=== PATIENT | male | born 1985 | race Hispanic/Latino ===

== ENCOUNTER 2017-11-12 23:44 | Emergency (ER) | payer OTHER ==
[2017-11-13] MEDS ORDERED: SODIUM CHLORIDE 0.9% 1000ML 1,000 ML IV ONE ×2 (00:15→01:04)
[2017-11-13 00:20] LABS: BASOPHILS % (AUTO) 0.7 % (0.0-5.0); EOSINOPHILS % (AUTO) 2.5 % (0.0-8.0); HEMATOCRIT 48.8 % (42-54); LYMPHOCYTES % (AUTO) 34.3 % (21.0-51.0); MEAN CORPUSCULAR HEMOGLOBIN 29.6 pg (27.0-33.0); MEAN CORPUSCULAR HGB CONC 34.7 g/dL (32.0-36.0); MEAN CORPUSCULAR VOLUME 85.1 fL (79-99); MONOCYTES % (AUTO) 7.2 % (3.0-13.0); NEUTROPHILS % (AUTO) 55.3 % (40.0-77.0); PLATELET COUNT (AUTO) 204 K/uL (130-400); RED BLOOD CELL COUNT(AUTO) 5.74 MIL/uL (4.50-6.20); RED CELL DISTRIBUTION WIDTH 12.4 % (11.0-15.5); WHITE BLOOD COUNT (AUTO) 8.2 K/uL (4.8-10.8)
[2017-11-13 00:30] LABS: APPEARANCE,URINE Clear (CLEAR); BILIRUBIN,URINE Negative (NEGATIVE); COLOR,URINE Yellow (YELLOW); GLUCOSE, URINE (UA) >=1000 mg/dL (NEGATIVE); KETONES,URINE Trace mg/dL (NEGATIVE); LEUKOCYTE ESTERASE ,URINE Negative (NEGATIVE); NITRATE,URINE Negative (NEGATIVE); OCCULT BLOOD,URINE Negative (NEGATIVE); PROTEIN,URINE Negative (NEGATIVE)
[2017-11-13 00:32] LABS: ALBUMIN 3.9 g/dL (3.5-5.0); BILIRUBIN,TOTAL 1.3 mg/dL (0.2-1.0); CREATININE 0.9 mg/dL (0.5-1.5); POTASSIUM 4.2 mmol/L (3.5-5.1); TOTAL PROTEIN, SERUM 7.4 g/dL (6.0-8.3)
[2017-11-13 00:38] LABS: AMPHET/METH SCREEN,URINE NEGATIVE (NEGATIVE); BARBITURATE SCREEN, URINE NEGATIVE (NEGATIVE); BENZODIAZEPINES SCREEN,URINE NEGATIVE (NEGATIVE); CANNABINOID SCREEN,URINE NEGATIVE (NEGATIVE); COCAINE SCREEN,URINE NEGATIVE (NEGATIVE); OPIATE SCREEN,URINE NEGATIVE (NEGATIVE); PHENCYCLIDINE SCREEN,URINE NEGATIVE (NEGATIVE)
[2017-11-13 00:39] LABS: BACTERIA,URINE None Seen /HPF (None Seen); RBC,URINE None Seen /HPF (0-1); SQUAMOUS EPITHELIAL CELL,UR Moderate /HPF (0-2); WBC,URINE None Seen /HPF (0-1)
[2017-11-13] MEDS ORDERED: INSULIN HUMULIN R 100 UNIT/ML 3ML ONE ×2 (01:02→01:58)
== END 2017-11-13 04:32 | disposition home or self-care (01) ==
LOC: EDH 23:44
DX: E11.65 Type 2 diabetes mellitus with hyperglycemia (principal); Z79.899 Other long term (current) drug therapy; Z87.891 Personal history of nicotine dependence
CPT/HCPCS: 36415; 80053; 80305; 81001; 82948 ×3; 85025; 96361; 96374; 96376; 99284; J1815 ×2; J7030 ×2

== ENCOUNTER 2018-04-18 01:51 | Emergency (ER) | payer OTHER ==
[2018-04-18] MEDS ORDERED: CLINDAMYCIN 600 MG/D5% WATER 50 ML IV ONE (03:35)
[2018-04-18] MEDS ORDERED: LIDOCAINE HCL 1% 20 ML VIAL ONE (03:35)
[2018-04-18] MEDS ORDERED: KETOROLAC TROMETHAMINE 30MG/ML ONE (03:35)
[2018-04-18 04:03] LABS: BASOPHILS % (AUTO) 0.5 % (0.0-5.0); EOSINOPHILS % (AUTO) 2.4 % (0.0-8.0); LYMPHOCYTES % (AUTO) 27.1 % (21.0-51.0); MEAN CORPUSCULAR HEMOGLOBIN 28.5 pg (27.0-33.0); MEAN CORPUSCULAR HGB CONC 33.7 g/dL (32.0-36.0); MEAN CORPUSCULAR VOLUME 84.5 fL (79-99); MONOCYTES % (AUTO) 8.8 % (3.0-13.0); NEUTROPHILS % (AUTO) 61.2 % (40.0-77.0); NUCLEATED RED BLOOD CELLS 0.1 % (0.0-0.19); PLATELET COUNT (AUTO) 169 K/uL (130-400); RED BLOOD CELL COUNT(AUTO) 5.56 MIL/uL (4.50-6.20); RED CELL DISTRIBUTION WIDTH 12.5 % (11.0-15.5); WHITE BLOOD COUNT (AUTO) 10.9 K/uL (4.8-10.8)
[2018-04-18 04:14] LABS: CREATININE 0.6 mg/dL (0.5-1.5); POTASSIUM 4.6 mmol/L (3.5-5.1)
== END 2018-04-18 06:37 | disposition home or self-care (01) ==
LOC: EDH 01:51
DX: L03.811 Cellulitis of head [any part, except face] (principal); E11.65 Type 2 diabetes mellitus with hyperglycemia; R03.0 Elevated blood-pressure reading, without diagnosis of hypertension
CPT/HCPCS: 10060; 36415; 80048; 85025; 96365; 96375; 99283; J1885; J3490

== ENCOUNTER 2019-05-29 07:38 | Emergency (ER) | payer OTHER ==
[2019-05-29] MEDS ORDERED: IBUPROFEN 600 MG TABLET ONE (07:59)
[2019-05-29 08:30] LABS: RAPID GROUP A STREP NEGATIVE (NEGATIVE)
== END 2019-05-29 09:17 | disposition home or self-care (01) ==
LOC: EDH 07:38
DX: B34.9 Viral infection, unspecified (principal); E11.9 Type 2 diabetes mellitus without complications; Z72.0 Tobacco use
CPT/HCPCS: 87804; 87880

== ENCOUNTER 2019-06-01 10:44 | Emergency (ER) | payer SELFPAY ==
[2019-06-01 11:32] LABS: BASOPHILS % (AUTO) 0.3 % (0.0-5.0); EOSINOPHILS % (AUTO) 0.3 % (0.0-8.0); HEMATOCRIT 44.9 % (42-54); LYMPHOCYTES % (AUTO) 11.3 % (21.0-51.0); MEAN CORPUSCULAR HEMOGLOBIN 28.6 pg (27.0-33.0); MEAN CORPUSCULAR HGB CONC 34.5 g/dL (32.0-36.0); MEAN CORPUSCULAR VOLUME 82.8 fL (79-99); NEUTROPHILS % (AUTO) 78.3 % (40.0-77.0); PLATELET COUNT (AUTO) 117 K/uL (130-400); RED BLOOD CELL COUNT(AUTO) 5.42 MIL/uL (4.50-6.20); RED CELL DISTRIBUTION WIDTH 11.8 % (11.0-15.5); WHITE BLOOD COUNT (AUTO) 12.5 K/uL (4.8-10.8)
[2019-06-01 11:34] LABS: CREATININE 0.9 mg/dL (0.5-1.5); POTASSIUM 4.3 mmol/L (3.5-5.1)
[2019-06-01 11:38] LABS: ALBUMIN 2.7 g/dL (3.5-5.0); BILIRUBIN,TOTAL 0.8 mg/dL (0.2-1.0); TOTAL PROTEIN, SERUM 7.6 g/dL (6.0-8.3)
[2019-06-01] MEDS ORDERED: SODIUM CHLORIDE 0.9% 1000ML 1,000 ML IV ONE (12:59)
[2019-06-01 13:41] LABS: HEMOGLOBIN A1C 10.9 % (4.0-6.0)
[2019-06-01 14:32] LABS: APPEARANCE,URINE Clear (CLEAR); BILIRUBIN,URINE Negative (NEGATIVE); COLOR,URINE Yellow (YELLOW); GLUCOSE, URINE (UA) >=1000 mg/dL (NEGATIVE); KETONES,URINE >=80 mg/dL (NEGATIVE); LEUKOCYTE ESTERASE ,URINE Negative (NEGATIVE); NITRATE,URINE Negative (NEGATIVE); OCCULT BLOOD,URINE Negative (NEGATIVE); PH,URINE 6.5 (5.0-8.0); PROTEIN,URINE POS 2+ mg/dL (NEGATIVE)
[2019-06-01 15:09] LABS: BACTERIA,URINE Few /HPF (None Seen); MUCUS,URINE Few LPF (None Seen); RBC,URINE 0-1 /HPF (0-1); SQUAMOUS EPITHELIAL CELL,UR 0-2 /HPF (0-2)
== END 2019-06-01 15:36 | disposition home or self-care (01) ==
LOC: EDH 10:44
DX: J18.9 Pneumonia, unspecified organism (principal); E11.65 Type 2 diabetes mellitus with hyperglycemia; J11.1 Influenza due to unidentified influenza virus with other respiratory manifestations; Z87.891 Personal history of nicotine dependence
CPT/HCPCS: 36415; 71046; 80053; 81001; 82948; 83036; 85025; 87040 ×2; 87077; 87186; 96360; 96361; 99285; J7030

== ENCOUNTER 2023-01-17 14:13 | Emergency (ER) | payer OTHER, SELFPAY | END 2023-01-17 15:35 | disposition left against medical advice (07) | LOC: EDH 14:13 | DX: E16.2 Hypoglycemia, unspecified (principal); Z53.21 Procedure and treatment not carried out due to patient leaving prior to being seen by health care provider ==

== ENCOUNTER 2023-04-25 14:04 | Emergency (ER) | payer BC, OTHER ==
[~2023-04-25] VITALS: Ht 182.9 cm; Wt 117.9 kg
[2023-04-25 14:21] VITALS: BP 179/91; PULSE 97; RESP 18; O2SAT 97
[2023-04-25] MEDS ORDERED: CLIN-141 PO (15:52)
== END 2023-04-25 15:56 | disposition home or self-care (01) ==
LOC: EDH 14:04
DX: S10.86XA Insect bite of other specified part of neck, initial encounter (principal); X58.XXXA Exposure to other specified factors, initial encounter; Y93.89 Activity, other specified; Y92.89 Other specified places as the place of occurrence of the external cause; Y99.8 Other external cause status

== ENCOUNTER 2023-10-13 17:37 | Emergency (ER) | payer OTHER ==
[~2023-10-13] VITALS: Ht 185.4 cm; Wt 99.8 kg
[~2023-10-13 17:37] MED LIST: CLIN-141 PO
[2023-10-13] MEDS: 0.9%NACL 1000ML 2,397 ML IV ONE (18:18)
[2023-10-13] MEDS: ZOSYN 3.375GM +NS 50ML IVPB SCH (18:19)
[2023-10-13 18:20] LABS: BASOPHILS # (AUTO) 0.04 K/uL (0.00-0.20); BASOPHILS % (AUTO) 0.4 % (0.0-5.0); EOSINOPHILS % (AUTO) 1.8 % (0.0-8.0); HEMATOCRIT 35.4 % (42-54); IMMATURE GRANULOCYTE ABSOLUTE 0.03 K/uL (0-1); LYMPHOCYTES # (AUTO) 1.3 K/uL (1.0-4.8); LYMPHOCYTES % (AUTO) 11.5 % (21.0-51.0); MEAN CORPUSCULAR HEMOGLOBIN 28.7 pg (27.0-33.0); MEAN CORPUSCULAR HGB CONC 35.3 g/dL (32.0-36.0); MEAN CORPUSCULAR VOLUME 81.4 fL (79-99); MONOCYTES # (AUTO) 1.2 K/uL (0.1-1.0); MONOCYTES % (AUTO) 10.6 % (3.0-13.0); NEUTROPHILS # (AUTO) 8.3 K/uL (1.8-7.7); NEUTROPHILS % (AUTO) 75.4 % (40.0-77.0); PLATELET COUNT (AUTO) 221 K/uL (130-400); RED BLOOD CELL COUNT(AUTO) 4.35 MIL/uL (4.50-6.20); RED CELL DISTRIBUTION WIDTH 11.9 % (11.0-15.5)
[2023-10-13] MEDS: ONDANSETRON 4MG INJ IVP ONE (18:34)
[2023-10-13 18:48] LABS: ALBUMIN 1.8 g/dL (3.5-5.0); BILIRUBIN,TOTAL 0.7 mg/dL (0.2-1.0); CREATININE 1.2 mg/dL (0.5-1.3); POTASSIUM 3.5 mmol/L (3.5-5.1); TOTAL PROTEIN, SERUM 6.4 g/dL (6.0-8.3)
[2023-10-13 20:07] LABS: ABG BASE EXCESS -4.3 mmol/L (-2.0-3.0); ABG HCO3 19.3 mmol/L (21.0-28.0); ABG OXYGEN SATURATION 95.6 % (95.0-99.0); ABG PCO2 32 mmHg (35-48); ABG PH 7.401 (7.350-7.450); PO2, ARTERIAL BG 77.3 mmHg (83.0-108.0); VENT MODE, BG ROOM AIR (ROOM AIR)
[2023-10-13] MEDS ORDERED: IOHEXOL 350 MG/ML 100ML INFUS..BTL IV ONE (20:38)
[2023-10-13] MEDS ORDERED: LISI5TAB21 PO (21:39)
[2023-10-13] MEDS ORDERED: METF500S9 PO (21:39)
[2023-10-13] MEDS ORDERED: CLIN-141 PO (21:39)
[2023-10-13] MEDS: HYDRALAZINE 20MG/ML VIAL IV ONE (21:50)
[2023-10-13] MEDS: MORPHINE 4 MG SYG IVP ONE (21:50)
[2023-10-13] MEDS: KETOROLAC 30MG VIAL (30MG/ML) ONE (22:32)
[2023-10-13] MEDS: KETOROLAC 30MG VIAL (30MG/ML) IVP ONE (22:32)
[2023-10-13 23:20] VITALS: BP 155/84; PULSE 98; RESP 18; O2SAT 98
== END 2023-10-13 23:22 | disposition home or self-care (01) ==
LOC: EDH 17:37
DX: K61.1 Rectal abscess (principal); E11.65 Type 2 diabetes mellitus with hyperglycemia; R03.0 Elevated blood-pressure reading, without diagnosis of hypertension
CPT/HCPCS: 99285; 74177; 96365; 96375; 80053; 82803; 85025; 87040 ×2; 82948; 83605; 83930; 82010; 36415; J7030; J0360; J2405; J2270; J1885; J2543; Q9967

== ENCOUNTER 2023-10-23 19:55 | Emergency (ER) | payer OTHER ==
[~2023-10-23] VITALS: Ht 185.4 cm; Wt 108.9 kg
[~2023-10-23 19:55] MED LIST changes: +LISI5TAB21 PO; +METF500S9 PO
[2023-10-23] MEDS ORDERED: SULF1TAB42 PO (20:54)
[2023-10-23] MEDS: LIDOCAINE HCL 1% 20 ML VIAL INJ SCH (22:45)
[2023-10-23] MEDS: CEFTRIAXONE 1G VIAL IM ONE (23:40)
[2023-10-24] MEDS: CLONIDINE HCL 0.1 MG TABLET PO ONE (00:09)
[2023-10-24 01:13] VITALS: BP 150/92; PULSE 78; RESP 16; O2SAT 100
== END 2023-10-24 01:29 | disposition home or self-care (01) ==
LOC: EDH 19:55
DX: K61.1 Rectal abscess (principal); E11.9 Type 2 diabetes mellitus without complications; I10 Essential (primary) hypertension
CPT/HCPCS: 99283; 82948; 96372; J0696

== ENCOUNTER 2024-01-14 15:34 | Inpatient (IN) | payer BC ==
[~2024-01-14] VITALS: Ht 185.4 cm; Wt 106.1 kg
[~2024-01-14 15:34] MED LIST changes: +SULF1TAB42 PO
[2024-01-14 16:36] LABS: BASOPHILS # (AUTO) 0.06 K/uL (0.00-0.20); BASOPHILS % (AUTO) 0.4 % (0.0-5.0); EOSINOPHILS % (AUTO) 0.6 % (0.0-8.0); HEMATOCRIT 37.7 % (42-54); LYMPHOCYTES % (AUTO) 5.9 % (21.0-51.0); MEAN CORPUSCULAR HEMOGLOBIN 27.4 pg (27.0-33.0); MEAN CORPUSCULAR HGB CONC 33.7 g/dL (32.0-36.0); MEAN CORPUSCULAR VOLUME 81.3 fL (79-99); MONOCYTES # (AUTO) 1.2 K/uL (0.1-1.0); MONOCYTES % (AUTO) 7.4 % (3.0-13.0); NEUTROPHILS % (AUTO) 85.1 % (40.0-77.0); PLATELET COUNT (AUTO) 446 K/uL (130-400); RED BLOOD CELL COUNT(AUTO) 4.64 MIL/uL (4.50-6.20); RED CELL DISTRIBUTION WIDTH 12.6 % (11.0-15.5); WHITE BLOOD COUNT (AUTO) 16.4 K/uL (4.8-10.8)
[2024-01-14 16:58] LABS: CREATININE 1.8 mg/dL (0.5-1.3); POTASSIUM 3.3 mmol/L (3.5-5.1)
[2024-01-14 17:02] LABS: ALBUMIN 1.6 g/dL (3.5-5.0); BILIRUBIN,TOTAL 0.4 mg/dL (0.2-1.0); TOTAL PROTEIN, SERUM 7.4 g/dL (6.0-8.3)
[2024-01-14] MEDS ORDERED: IOHEXOL-350 75 ML VIAL IV ONE (17:15)
[2024-01-14] MEDS: FAMOTIDINE 20MG VIAL IV ONE (17:23)
[2024-01-14] MEDS: ONDANSETRON 4MG INJ IVP ONE (17:23)
[2024-01-14] MEDS: CLINDAMYCIN IVPB 600MG/50ML 50 ML IV SCH (17:52)
[2024-01-14] MEDS: 0.9%NACL 1000ML 1,000 ML IV ONE (17:52)
[2024-01-14] MEDS ORDERED: ZOSYN 3.375GM +NS 50ML IV SCH (19:00)
[2024-01-14] MEDS ORDERED: metRONIDazole 500MG/100ML BAG 100 ML IVPB ONE (19:00)
[2024-01-14] MEDS: ZOSYN 3.375GM +NS 50ML IV ONE (20:18)
[2024-01-14] MEDS: morPHINE 2 MG SYG IVP ONE (20:26)
[2024-01-14] MEDS ORDERED: SEMA0.258 SQ (21:40)
[2024-01-14] MEDS ORDERED: LISI40TA9 PO (21:40)
[2024-01-14] MEDS ORDERED: INSU300I3 SQ (21:40)
[2024-01-14] MEDS ORDERED: ACET-2079 PO (21:40)
[2024-01-14 21:45] VITALS: BP 169/95; PULSE 92; RESP 20; TEMP 98.3
[2024-01-15] VITALS (30 sets, daily range): BP systolic 127–169; BP diastolic 70–99; PULSE 84–99; RESP 15–20; TEMP 97.1–98.7; O2SAT 96–97
[2024-01-15] MEDS: metRONIDazole 500MG/100ML BAG 100 ML IVPB SCH (00:53)
[2024-01-15 05:03] LABS: BASOPHILS # (AUTO) 0.04 K/uL (0.00-0.20); BASOPHILS % (AUTO) 0.3 % (0.0-5.0); EOSINOPHILS # (AUTO) 0.23 K/uL (0.00-0.70); EOSINOPHILS % (AUTO) 1.8 % (0.0-8.0); HEMATOCRIT 33.3 % (42-54); IMMATURE GRANULOCYTE ABSOLUTE 0.09 K/uL (0-1); LYMPHOCYTES # (AUTO) 1.3 K/uL (1.0-4.8); LYMPHOCYTES % (AUTO) 10.1 % (21.0-51.0); MEAN CORPUSCULAR HEMOGLOBIN 27.4 pg (27.0-33.0); MONOCYTES # (AUTO) 1.4 K/uL (0.1-1.0); MONOCYTES % (AUTO) 10.8 % (3.0-13.0); NEUTROPHILS # (AUTO) 9.9 K/uL (1.8-7.7); NEUTROPHILS % (AUTO) 76.3 % (40.0-77.0); PLATELET COUNT (AUTO) 350 K/uL (130-400); RED BLOOD CELL COUNT(AUTO) 4.01 MIL/uL (4.50-6.20); RED CELL DISTRIBUTION WIDTH 12.6 % (11.0-15.5); WHITE BLOOD COUNT (AUTO) 12.9 K/uL (4.8-10.8)
[2024-01-15 05:16] LABS: INR 1.16 (0.85-1.15); PROTHROMBIN TIME 12.4 SEC (9.6-11.6)
[2024-01-15 05:17] LABS: PARTIAL THROMBOPLASTIN TIME 35.5 SEC (26.3-35.5)
[2024-01-15 05:28] LABS: ALBUMIN 1.2 g/dL (3.5-5.0); BILIRUBIN,TOTAL 0.3 mg/dL (0.2-1.0); CREATININE 1.6 mg/dL (0.5-1.3); POTASSIUM 3.1 mmol/L (3.5-5.1); TOTAL PROTEIN, SERUM 5.9 g/dL (6.0-8.3)
[2024-01-15] MEDS: INSULIN humuLIN R 100 UNIT/ML 3ML SQ SCH (06:23)
[2024-01-15] MEDS: acetaMINOPHEN 325 MG TAB PO PRN (08:13)
[2024-01-15] MEDS ORDERED: MIDAZOLAM HCL 1 MG/ML 2ML VIAL ONE (11:51)
[2024-01-15] MEDS ORDERED: LIDOCAINE PF 100MG/5ML (2%) SYRINGE 5ML ONE (11:51)
[2024-01-15] MEDS ORDERED: proPOFol 10 MG/ML 20ML VIAL IV ONE ×3 (11:51→16:14)
[2024-01-15] MEDS ORDERED: FENTanyl CITRate PF 50 MCG/1 ML 2ML VIAL ONE (11:52)
[2024-01-15] MEDS ORDERED: rocuRONium bROMide 10MG/1ML 5ML VL ONE (11:52)
[2024-01-15] MEDS ORDERED: proPOFol 1000 MG/100 ML 100 ML IV ONE (15:33)
[2024-01-15] MEDS ORDERED: hydrALAZine 20MG/ML VIAL ONE (15:33)
[2024-01-15] MEDS ORDERED: ketaMINE 50MG/ML SYRINGE 50 MG/ML DISP.SYRIN ONE (15:33)
[2024-01-15] MEDS ORDERED: ONDANSETRON 4MG INJ ONE (15:55)
[2024-01-15] MEDS ORDERED: GLYCOPYRROLATE 0.2 MG/ML 5 ML VIAL ONE (16:07)
[2024-01-15] MEDS ORDERED: NEOSTIGMINE METHYLSULFATE 1MG/ML IV ONE (16:07)
[2024-01-15] MEDS: LAbetaLOL 20MG VIAL ONE (17:05)
[2024-01-15] MEDS: MEPERIDINE-PF 25 MG/ML SYG ONE (17:10)
[2024-01-15] MEDS: IBUPROFEN 400 MG TABLET PO SCH (19:24)
[2024-01-15] MEDS: LISINOPRIL 40 MG TABLET PO SCH (21:34)
[2024-01-16] VITALS (7 sets, daily range): BP systolic 140–165; BP diastolic 80–93; PULSE 79–98; RESP 18–20; TEMP 97.6–98.7; O2SAT 96
[2024-01-16 05:28] LABS: BASOPHILS # (AUTO) 0.03 K/uL (0.00-0.20); BASOPHILS % (AUTO) 0.3 % (0.0-5.0); EOSINOPHILS # (AUTO) 0.14 K/uL (0.00-0.70); EOSINOPHILS % (AUTO) 1.5 % (0.0-8.0); HEMATOCRIT 32.9 % (42-54); IMMATURE GRANULOCYTE ABSOLUTE 0.06 K/uL (0-1); LYMPHOCYTES # (AUTO) 1.5 K/uL (1.0-4.8); LYMPHOCYTES % (AUTO) 15.7 % (21.0-51.0); MEAN CORPUSCULAR HEMOGLOBIN 27.5 pg (27.0-33.0); MEAN CORPUSCULAR HGB CONC 33.1 g/dL (32.0-36.0); MEAN CORPUSCULAR VOLUME 82.9 fL (79-99); MONOCYTES # (AUTO) 0.9 K/uL (0.1-1.0); MONOCYTES % (AUTO) 9.8 % (3.0-13.0); NEUTROPHILS % (AUTO) 72.1 % (40.0-77.0); PLATELET COUNT (AUTO) 335 K/uL (130-400); RED BLOOD CELL COUNT(AUTO) 3.97 MIL/uL (4.50-6.20); RED CELL DISTRIBUTION WIDTH 12.6 % (11.0-15.5); WHITE BLOOD COUNT (AUTO) 9.6 K/uL (4.8-10.8)
[2024-01-16 05:56] LABS: ALBUMIN 1.2 g/dL (3.5-5.0); BILIRUBIN,TOTAL 0.3 mg/dL (0.2-1.0); CREATININE 1.9 mg/dL (0.5-1.3); TOTAL PROTEIN, SERUM 5.9 g/dL (6.0-8.3)
[2024-01-16 06:04] LABS: POTASSIUM 2.9 mmol/L (3.5-5.1)
[2024-01-16] MEDS: traMADol HCL 50 MG TABLET PO PRN (06:26)
[2024-01-16] MEDS ORDERED: MAGNESIUM 2GM PREMIX 50ML 50 ML IV PRN (06:30)
[2024-01-16] MEDS: POTASSIUM CHLORIDE 20MEQ/100ML 100 ML IV PRN (06:41)
[2024-01-16] MEDS ORDERED: ONDANSETRON 4MG INJ IVP PRN (09:00)
[2024-01-16] MEDS: FAMOTIDINE 20MG VIAL IV SCH (10:56)
[2024-01-16] MEDS: IBUPROFEN 800 MG TAB PO SCH (10:59)
[2024-01-16] MEDS: KCL 20 MEQ ERTAB PO PRN (14:45)
[2024-01-16] MEDS: metRONIDazole 500MG/100ML BAG 100 ML IVPB SCH (18:08)
[2024-01-16 20:10] LABS: ALBUMIN 1.2 g/dL (3.5-5.0); BILIRUBIN,TOTAL 0.2 mg/dL (0.2-1.0); CREATININE 1.8 mg/dL (0.5-1.3); MAGNESIUM 1.8 mg/dL (1.80-2.40); TOTAL PROTEIN, SERUM 5.5 g/dL (6.0-8.3)
[2024-01-16 20:12] LABS: POTASSIUM 2.6 mmol/L (3.5-5.1)
[2024-01-16] MEDS: POTASSIUM CHLORIDE 10% ELIXIR 20 MEQ/15 ML UDCUP PO PRN (21:30)
[2024-01-17] VITALS (7 sets, daily range): BP systolic 152–181; BP diastolic 93–96; PULSE 72–96; RESP 16–19; TEMP 97.6–98.5; O2SAT 96–99
[2024-01-17 06:00] LABS: HEMATOCRIT 34.8 % (42-54); MEAN CORPUSCULAR HEMOGLOBIN 27.4 pg (27.0-33.0); MEAN CORPUSCULAR VOLUME 83.1 fL (79-99); RED BLOOD CELL COUNT(AUTO) 4.19 MIL/uL (4.50-6.20); RED CELL DISTRIBUTION WIDTH 12.3 % (11.0-15.5); WHITE BLOOD COUNT (AUTO) 10.9 K/uL (4.8-10.8)
[2024-01-17 06:15] LABS: CREATININE 1.5 mg/dL (0.5-1.3); POTASSIUM 3.9 mmol/L (3.5-5.1)
[2024-01-17] MEDS: morPHINE 4 MG SYG IVP PRN (08:10)
[2024-01-18 04:30] VITALS: BP 183/96; PULSE 86; RESP 18; TEMP 98.9
[2024-01-18 08:18] VITALS: BP 185/98; PULSE 85; RESP 18; TEMP 100
[2024-01-18 08:20] VITALS: O2SAT 99
[2024-01-18 10:47] VITALS: BP 95/54; PULSE 111; RESP 19; TEMP 98.3
[2024-01-18 17:11] VITALS: BP 159/88; PULSE 90; RESP 16; TEMP 98.6
[2024-01-18 20:00] VITALS: BP 153/78; PULSE 81; RESP 18; TEMP 98.7; O2SAT 100
[2024-01-19] VITALS (9 sets, daily range): BP systolic 133–191; BP diastolic 85–103; PULSE 80–91; RESP 17–20; TEMP 98–98.6; O2SAT 99
[2024-01-19] MEDS: ZOSYN 3.375GM +NS 50ML IV SCH (11:51)
[2024-01-19] MEDS: LISINOPRIL 40 MG TABLET PO SCH (12:51)
[2024-01-19] MEDS: cloNIDine HCL 0.1 MG TABLET PO PRN (16:34)
[2024-01-20] VITALS (7 sets, daily range): BP systolic 143–177; BP diastolic 88–101; PULSE 77–89; RESP 16–20; TEMP 98.1–98.7; O2SAT 99
[2024-01-20 05:54] LABS: HEMATOCRIT 34.3 % (42-54); MEAN CORPUSCULAR HEMOGLOBIN 27.8 pg (27.0-33.0); MEAN CORPUSCULAR HGB CONC 34.1 g/dL (32.0-36.0); MEAN CORPUSCULAR VOLUME 81.5 fL (79-99); RED BLOOD CELL COUNT(AUTO) 4.21 MIL/uL (4.50-6.20); RED CELL DISTRIBUTION WIDTH 12.3 % (11.0-15.5); WHITE BLOOD COUNT (AUTO) 7.6 K/uL (4.8-10.8)
[2024-01-20 06:03] LABS: CREATININE 1.3 mg/dL (0.5-1.3); MAGNESIUM 1.7 mg/dL (1.80-2.40); POTASSIUM 3.2 mmol/L (3.5-5.1)
[2024-01-20 16:06] LABS: INR 1.1 (0.85-1.15); PROTHROMBIN TIME 11.8 SEC (9.6-11.6)
[2024-01-20 16:08] LABS: PARTIAL THROMBOPLASTIN TIME 31.7 SEC (26.3-35.5)
[2024-01-21] VITALS: BP 171/94; PULSE 79; RESP 20; TEMP 98.2
[2024-01-21 04:00] VITALS: BP 169/103; PULSE 85; RESP 20; TEMP 98.1
[2024-01-21 08:00] VITALS: BP 179/99; PULSE 84; RESP 21; TEMP 98.3; O2SAT 99
[2024-01-21] MEDS: traMADol HCL 50 MG TABLET PO PRN (09:09)
[2024-01-21] MEDS: morPHINE 4 MG SYG IVP PRN (10:44)
[2024-01-21 12:00] VITALS: BP 148/88; PULSE 92; RESP 18; TEMP 98.6
== END 2024-01-21 16:10 | DRG 854 ==
LOC: EDH 15:34 → EDHIP 18:46 → 4AH 21:16
PROVIDERS: ADMIT Internal Medicine; ATTEND Internal Medicine
PROC: 0JB90ZZ Excision of Buttock Subcutaneous Tissue and Fascia, Open Approach (ICD-10-PCS; principal; 2024-01-15 15:22)
DX: A41.9 Sepsis, unspecified organism (principal); K61.2 Anorectal abscess; Z16.24 Resistance to multiple antibiotics; L02.31 Cutaneous abscess of buttock; N39.0 Urinary tract infection, site not specified; Z16.12 Extended spectrum beta lactamase (ESBL) resistance; N17.9 Acute kidney failure, unspecified; I10 Essential (primary) hypertension; E11.65 Type 2 diabetes mellitus with hyperglycemia; E87.6 Hypokalemia; D64.9 Anemia, unspecified; E78.5 Hyperlipidemia, unspecified; B96.20 Unspecified Escherichia coli [E. coli] as the cause of diseases classified elsewhere; E66.01 Morbid (severe) obesity due to excess calories; Z83.3 Family history of diabetes mellitus; Z79.4 Long term (current) use of insulin; Z79.899 Other long term (current) drug therapy
CPT/HCPCS: 36415; 74177; 80048; 80053; 82948; 83036; 83605; 83690; 83735; 84132; 84145; 85025; 85027; 85610; 85730; 87040; 87070; 87076; 87086; 87186; 87205; 88304; 96374; 96375; C1894; G0378; J0360; J1815; J2001; J2175; J2250; J2270; J2405; J2543; J2704; J2710; J3010; J3480; J3490; J7030; Q9967; A4452; A4649; A4930; A6210; A9272; C1750; G8980-CI; G8983-CI

== ENCOUNTER 2024-02-20 23:33 | Emergency (ER) | payer BC ==
[~2024-02-20] VITALS: Ht 185.4 cm; Wt 104.3 kg
[~2024-02-20 23:33] MED LIST changes: -CLIN-141 PO; +LISI40TA9 PO; -LISI5TAB21 PO; -METF500S9 PO; -SULF1TAB42 PO
[2024-02-20 23:52] VITALS: TEMP 98.4
[2024-02-20] MEDS ORDERED: CIPR7.5D7 OTIC (23:59)
[2024-02-21] MEDS: acetaMINOPHEN 500 MG TABLET PO ONE (00:08)
[2024-02-21 00:29] VITALS: BP 155/65; PULSE 85; RESP 18; O2SAT 100
== END 2024-02-21 01:03 | disposition home or self-care (01) ==
LOC: EDH 23:33
DX: H61.23 Impacted cerumen, bilateral (principal); E11.9 Type 2 diabetes mellitus without complications; I10 Essential (primary) hypertension; Z79.899 Other long term (current) drug therapy; Z98.890 Other specified postprocedural states

== ENCOUNTER 2024-10-12 00:02 | Emergency (ER) | payer BC ==
[~2024-10-12] VITALS: Ht 185.4 cm; Wt 113.4 kg
[~2024-10-12 00:02] MED LIST changes: +CIPR7.5D7 OTIC
[2024-10-12 00:03] VITALS: TEMP 97.2
--- NOTE | 2024-10-12 00:25 | ERN ---
General Chief Complaint: Hypertension Stated Complaint: HIGH BLOOD PRESSURE Time Seen by MD: 00:03 History of Present Illness Initial Comments 39-year-old male history of hypertension diabetes CKD presents for hypertension. Patient reports he feels pressure behind his eyes and some jitteriness. He reports that this is how he feels in his pressure is elevated. He has been taking all of his regular medicines. He took his blood pressure at home and it was 190 systolic. He did take a clonidine, but he reports he still feels the symptoms. On arrival here his blood pressure is 202 systolic. No focal neurologic deficits. No chest discomfort. He has otherwise been in his normal state of health. Denies drug abuse. Allergies: Coded Allergies: No Known Allergies (Unverified Allergy, Unknown, 12/28/18) Home Meds Active Scripts Ciprofloxacin HCl/Dexameth (Ciproflox-Dexameth Otic Susp) 0.3 %-0.1 % Drops.susp, 4 DROP OTIC BID for 7 Days, #7.5 ML 0 Refills Prov:ROMI ZHONG MD 02/20/24 Reported Medications Lisinopril (Lisinopril) 40 Mg Tablet, 40 MG PO BID, TAB 01/19/24 Lisinopril (Lisinopril) 40 Mg Tablet, 40 MG PO BID, TAB 01/14/24 Past Medical History Past Medical History: Diabetes-Type II, Hypertension, Renal Disese Past Surgical History: Other Surgical History Other: HX OF RT LEG SX Family History Family History: Negative Social History Social History: Negative, Lives with family ROS Dictation CONSTITUTIONAL: No chills, no fever, no weakness, no diaphoresis, no malaise. HEAD/FACE: No signs of trauma. EENT: No eye pain, no blurred vision, no tearing, no double vision, no ear pain, no ear discharge, no nose pain, no nasal congestion, no throat pain, no throat swelling, no mouth pain. RESPIRATORY: No cough, no orthopnea, no SOB, no stridor, no wheezing. CARDIOVASCULAR: No chest pain, no edema, no palpitations, no syncope. GASTROINTESTINAL/ABDOMINAL: No abdominal pain, no constipation, no diarrhea, no nausea, no vomiting. GENITOURINARY: No abnormal discharge, no dysuria, no frequent urination, no hematuria. No complaints of pain in the genitals. MUSCULOSKELETAL: No back pain, no gout, no joint pain, no joint swelling, no muscle pain, no muscle stiffness, no neck pain. INTEGUMENTARY: No change in color, no change in hair/nails, no dryness, no lesion, no lumps, no rash. NEUROLOGICAL/PSYCH: Headache, pain behind the eyes, jittery HEMATOLOGIC/LYMPHATIC: Not anemic, no history of blood clots, no apparent bleeding, no bruising, glands not swollen. All Systems Negative, Except as Noted. Physical Exam Physical Exam Dictation VITAL SIGNS: Reviewed. GENERAL APPEARANCE: Alert, oriented x3, moderate distress HEAD AND FACE: Non-traumatic. EYES: PERRL, pink conjunctivas, eyelid no trauma, anterior chamber clear. EARS: Pinnas intact and no signs of trauma or erythema. Ear canals clear and no discharge. TMs no erythema. NOSE: No discharge, no bleeding. OROPHARYNX: Mouth normal, teeth no caries, tongue pink. Pharynx clear, no erythema. Tonsils no exudates, no abscesses noted. Mucous membrane moist. NECK: Supple, non-tender, no thyromegaly, no masses, no JVD, no bruits. BREAST: Deferred. CHEST: No tenderness, no crepitus, no paradoxical movement, no retractions. LUNGS: Clear, well-ventilated, symmetric, no rales, no wheezing, no rhonchi, no stridor, good breath sounds bilaterally. HEART: Regular rate, regular rhythm, no murmur, no gallops. VASCULAR: No peripheral edema. ABDOMEN: Soft, positive bowel sounds, nondistended, no guarding, nontender, no rebound, no masses no hepatomegaly, no splenomegaly, no Parsons's sign, no hernias. RECTAL: Deferred. GENITAL: Deferred. NEUROLOGICAL: Normal speech, gross motor function intact, gross sensory function intact. MUSCULOSKELETAL: Neck nontender, full range of motion, back nontender, full range of motion. EXTREMITIES: Nontender, full range of motion. SKIN: Color pink, dry, no turgor, no rash, no lacerations, no abrasions, no contusions. LYMPHATICS: Deferred. Results Laboratory and Microbiology Lab and Micro Result Laboratory Tests Test 10/12/24 00:32 White Blood Count 6.0 K/uL (4.8-10.8) Red Blood Count 3.54 MIL/uL (4.50-6.20) L Hemoglobin 10.1 g/dL (14.0-18.0) L Hematocrit 30.5 % (42-54) L Mean Corpuscular Volume 86.2 fL (79-99) Mean Corpuscular Hemoglobin 28.5 pg (27.0-33.0) Mean Corpuscular Hemoglobin Concent 33.1 g/dL (32.0-36.0) Red Cell Distribution Width 12.9 % (11.0-15.5) Platelet Count 187 K/uL (130-400) Mean Platelet Volume 9.8 fL (7.5-10.5) Immature Granulocyte % (Auto) 0.2 % (0-1) Neutrophils (%) (Auto) 60.4 % (40.0-77.0) Lymphocytes (%) (Auto) 24.5 % (21.0-51.0) Monocytes (%) (Auto) 8.2 % (3.0-13.0) Eosinophils (%) (Auto) 6.0 % (0.0-8.0) Basophils (%) (Auto) 0.7 % (0.0-5.0) Neutrophils # (Auto) 3.6 K/uL (1.8-7.7) Lymphocytes # (Auto) 1.5 K/uL (1.0-4.8) Monocytes # (Auto) 0.5 K/uL (0.1-1.0) Eosinophils # (Auto) 0.36 K/uL (0.00-0.70) Basophils # (Auto) 0.04 K/uL (0.00-0.20) Absolute Immature Granulocyte (auto 0.01 K/uL (0-1) Nucleated Red Blood Cells 0.0 % (0.0-0.19) Sodium Level 142 mmol/L (136-145) Potassium Level 4.9 mmol/L (3.5-5.1) Chloride Level 109 mmol/L (101-111) Carbon Dioxide Level 22 mmol/L (21-32) Blood Urea Nitrogen 37 mg/dL (7-18) H Creatinine 2.2 mg/dL (0.5-1.3) H Glomerular Filtration Rate Calc 38 mL/min (>90) Random Glucose 131 mg/dL (70-105) H Total Calcium 8.3 mg/dL (8.5-10.1) L Total Creatine Kinase 843 U/L (21-232) *H Troponin I High Sensitivity 12.7 ng/L (4-75) MDM CC: HTN, eye pain, jittery in his consistent with hypertension. Patient feels this when his blood pressure is elevated Historian: Patient Comorbidities: Malignant hypertension, CKD, diabetes Limitations by social determinants of health: None Differential diagnosis: Stroke, ACS, end-organ damage, hypertensive urgency versus emergency Initial blood pressure 202/100. Otherwise stable. Cranial nerves are intact, no signs of stroke. Nontoxic in appearance. Patient given IV hydralazine Labs show anemia otherwise normal CBC, metabolic panel is unremarkable. Re-evaluation: Blood pressure improved 144/70. Patient is completely asymptomatic and reports a dramatic improvement of the symptoms. Patient has plenty of blood pressure medications at home including a clonidine to use as needed. We will DC to PCP follow up. We will recommend cardiology consultation as an outpatient. ED Course Orders Procedure Category Date Status Time Hydralazine 20mg Inj PHA 10/12/24 Complete (Apresoline 20mg In 00:30 Cardiac Panel LAB 10/12/24 Complete 00:17 Cbc With Differential LAB 10/12/24 Complete 00:17 Basic Metabolic Panel LAB 10/12/24 Complete 00:17 12 Lead Ekg Tracing- EKG 10/12/24 Logged Technical 00:17 Current Medications Medications (Trade) Dose Ordered Sig/Stacia Route PRN Reason Start Time Stop Time Status Last Admin Dose Admin Hydralazine HCl (APRESOLine 20MG INJ) 20 mg ONCE ONCE IV 10/12/24 00:30 10/12/24 00:31 DC 10/12/24 00:31 Vital Signs Date Time Temp Pulse Resp B/P (MAP) Pulse Ox O2 Delivery O2 Flow Rate FiO2 10/12/24 00:50 98 18 144/77 98 Room Air* 0 21 10/12/24 00:22 91 18 199/102 99 Room Air* 0 21 10/12/24 00:03 97.2 91 19 202/100 99 Room Air DX & DISP Disposition: Discharge Departure Impression: Primary Impression: Hypertensive urgency Critical Time: 30 minutes (Critical Care Procedure NoteAuthorized and Performed by: meTotal critical care time: Approximately 36 minutesDue to a high pro bability of clinically significant, life threatening deterioration, the patient required my highest level of preparedness to intervene emergently and I personally spent this critical care time directly and personally managing the patient. This critical care time included obtaining a history; examining the patient; pulse oximetry; ordering and review of studies; arranging urgent tripp atment with development of a management plan; evaluation of patient's response to treatment; frequent reassessment; and, discussions with other providers.This critical care time was performed to assess and manage the high probability of imminent, life-threatening deterioration that could result in multi-organ failure. It was exclusive of separately billable procedures and treating other patients and teaching time.Please see MDM section and the rest of the note for further information on patient assessment and treatment.) Condition: Stable Additional Instructions: Your symptoms were consistent with a hypertensive urgency. Your blood pressure improved in the ER with 20 mg of IV hydralazine. Continue with your home blood pressure medications. As we discussed, you can use clonidine as needed for elevated blood pressures. You may want to follow up with the snow blower to assist in blood pressure management. I have given you a referral. Please return to the emergency department as needed. Referrals: AMINATA BERGER MD (PCP) THADDEUS HILARIO MD, RYAN E DO October 12, 2024 00:25
[2024-10-12] MEDS: hydrALAZine 20MG/ML VIAL IV ONE (00:31)
[2024-10-12 00:47] LABS: CREATININE 2.2 mg/dL (0.5-1.3); POTASSIUM 4.9 mmol/L (3.5-5.1)
[2024-10-12 00:50] VITALS: BP 144/77; PULSE 98; RESP 18; O2SAT 98
[2024-10-12 00:53] LABS: BASOPHILS # (AUTO) 0.04 K/uL (0.00-0.20); BASOPHILS % (AUTO) 0.7 % (0.0-5.0); EOSINOPHILS # (AUTO) 0.36 K/uL (0.00-0.70); HEMATOCRIT 30.5 % (42-54); IMMATURE GRANULOCYTE ABSOLUTE 0.01 K/uL (0-1); LYMPHOCYTES # (AUTO) 1.5 K/uL (1.0-4.8); LYMPHOCYTES % (AUTO) 24.5 % (21.0-51.0); MEAN CORPUSCULAR HEMOGLOBIN 28.5 pg (27.0-33.0); MEAN CORPUSCULAR HGB CONC 33.1 g/dL (32.0-36.0); MEAN CORPUSCULAR VOLUME 86.2 fL (79-99); MONOCYTES # (AUTO) 0.5 K/uL (0.1-1.0); MONOCYTES % (AUTO) 8.2 % (3.0-13.0); NEUTROPHILS # (AUTO) 3.6 K/uL (1.8-7.7); NEUTROPHILS % (AUTO) 60.4 % (40.0-77.0); PLATELET COUNT (AUTO) 187 K/uL (130-400); RED BLOOD CELL COUNT(AUTO) 3.54 MIL/uL (4.50-6.20); RED CELL DISTRIBUTION WIDTH 12.9 % (11.0-15.5)
== END 2024-10-12 01:10 | disposition home or self-care (01) ==
LOC: EDH 00:02
DX: I16.0 Hypertensive urgency (principal); E11.22 Type 2 diabetes mellitus with diabetic chronic kidney disease; I12.9 Hypertensive chronic kidney disease with stage 1 through stage 4 chronic kidney disease, or unspecified chronic kidney disease; N18.9 Chronic kidney disease, unspecified; Z79.899 Other long term (current) drug therapy; Z98.890 Other specified postprocedural states
CPT/HCPCS: 99284; 96374; 82550; 84484; 80048; 85025; 36415; J0360

== ENCOUNTER 2024-11-06 08:49 | Emergency (ER) | payer BC ==
[~2024-11-06] VITALS: Ht 185.4 cm; Wt 117.0 kg
[~2024-11-06 08:49] MED LIST changes: +LISI40TA15 PO; -LISI40TA9 PO
--- NOTE | 2024-11-06 11:02 | ERN ---
General Chief Complaint: Mechanical Fall Stated Complaint: FALL Time Seen by MD: 08:51 Source: patient History of Present Illness Initial Comments Patient is a 39-year-old male coming in after he had a slip and fall at a convenient store. Per patient he states he fell down landing in his right knee. He was concerned because he recently had gallbladder surgery and states he has mild right upper quadrant discomfort as well. Allergies: Coded Allergies: No Known Allergies (Unverified Allergy, Unknown, 12/28/18) Home Meds Active Scripts Ciprofloxacin HCl/Dexameth (Ciproflox-Dexameth Otic Susp) 0.3 %-0.1 % Drops.susp, 4 DROP OTIC BID for 7 Days, #7.5 ML 0 Refills Prov:ROMI ZHONG MD 02/20/24 Reported Medications Lisinopril (Lisinopril) 40 Mg Tablet, 40 MG PO BID, TAB 01/19/24 Lisinopril (Lisinopril) 40 Mg Tablet, 40 MG PO BID, TAB 01/14/24 Past Medical History Past Medical History: Diabetes-Type II, Hypertension Medical History Other: CKD STAGE 3 Past Surgical History: Cholecystectomy Surgical History Other: KNEE SX, HIP SX, Family History Family History: Negative Social History Social History: Negative, Lives with family ROS Dictation CONSTITUTIONAL: No chills, no fever, no weakness, no diaphoresis, no malaise. HEAD/FACE: No signs of trauma. EENT: No eye pain, no blurred vision, no tearing, no double vision, no ear pain, no ear discharge, no nose pain, no nasal congestion, no throat pain, no throat swelling, no mouth pain. RESPIRATORY: No cough, no orthopnea, no SOB, no stridor, no wheezing. CARDIOVASCULAR: No chest pain, no edema, no palpitations, no syncope. GASTROINTESTINAL/ABDOMINAL: abdominal pain, no constipation, no diarrhea, no nausea, no vomiting. GENITOURINARY: No abnormal discharge, no dysuria, no frequent urination, no hematuria. No complaints of pain in the genitals. MUSCULOSKELETAL: No back pain, no gout, joint pain, no joint swelling, no muscle pain, no muscle stiffness, no neck pain. INTEGUMENTARY: No change in color, no change in hair/nails, no dryness, no lesion, no lumps, no rash. NEUROLOGICAL/PSYCH: No anxiety, not depressed, no emotional problem, no headache, no numbness, no pre-existing deficit, no history of seizures, no tremors, no weakness. HEMATOLOGIC/LYMPHATIC: Not anemic, no history of blood clots, no apparent bleeding, no bruising, glands not swollen. All Systems Negative, Except as Noted. Physical Exam Physical Exam Dictation VITAL SIGNS: Reviewed. GENERAL APPEARANCE: Alert, oriented x3, no acute distress, obese. HEAD AND FACE: Non-traumatic. EYES: PERRL, pink conjunctivas, eyelid no trauma, anterior chamber clear. EARS: Pinnas intact and no signs of trauma or erythema. Ear canals clear and no discharge. TMs no erythema. NOSE: No discharge, no bleeding. OROPHARYNX: Mouth normal, teeth no caries, tongue pink. Pharynx clear, no erythema. Tonsils no exudates, no abscesses noted. Mucous membrane moist. NECK: Supple, non-tender, no thyromegaly, no masses, no JVD, no bruits. BREAST: Deferred. CHEST: No tenderness, no crepitus, no paradoxical movement, no retractions. LUNGS: Clear, well-ventilated, symmetric, no rales, no wheezing, no rhonchi, no stridor, good breath sounds bilaterally. HEART: Regular rate, regular rhythm, no murmur, no gallops. VASCULAR: No peripheral edema. ABDOMEN: Soft, positive bowel sounds, nondistended, no guarding, nontender, no rebound, no masses no hepatomegaly, no splenomegaly, no Parsons's sign, no hernias. RECTAL: Deferred. GENITAL: Deferred. NEUROLOGICAL: Normal speech, gross motor function intact, gross sensory function intact. MUSCULOSKELETAL: Neck nontender, full range of motion, back nontender, full range of motion. EXTREMITIES: Nontender, full range of motion. Right knee pain on palpation SKIN: Color pink, dry, no turgor, no rash, no lacerations, no abrasions, no contusions. LYMPHATICS: Deferred. Results Laboratory and Microbiology Labs Reviewed?: Yes EKG/XRAY/US/CT/MRI X-RAY Comment X-ray knee-NAD Ultrasound Comment Ultrasound right upper quadrant- mild right upper quadrant congestion CT Scan Comment [facility] [address] [place] [id number] IMAGING REPORT Signed PATIENT: DEVYN DUGGAN MR#: [id number] : 1985 SEX: M AGE: 39 LOCATION: [facility] ORDER 1014 STATUS: [facility] ER REPORT#: [id number] SERVICE 1013 REASON: ruq ORDERING PHYSICIAN: SABAS EDDY MD PROCEDURE: ABD PEL WO - CT ABDOMEN/PELVIS W/O CONTRAST CT ABDOMEN/PELVIS W/O CONTRAST HISTORY: Right upper quadrant. COMPARISON: None TECHNIQUE: Multiple sequential axial images of the abdomen and pelvis were obtained from the dome of the diaphragm through symphysis pubis. Patient was not given contrast through intravenous route. Oral contrast was not given. FINDINGS: Tiny right pleural effusions with subsegmental atelectasis. Tiny pericardial effusion is seen. There is no evidence of parenchymal disease or pulmonary nodule of the visualized lower lungs. Degenerative changes of the thoracolumbar spine are present. The heart is not enlarged. Postcholecystectomy changes are seen. The liver, spleen, adrenal glands and pancreas are unremarkable. There is no evidence of hydronephrosis bilaterally. No evidence of renal stone is seen. Fecal material is seen in the colon. There are normal size retroperitoneal and mesenteric lymph nodes. No ascites is seen. Atherosclerotic changes are present. Pelvic sidewalls are symmetric bilaterally. Bladder is poorly distended. IMPRESSION: 1. No acute findings. CT was performed with one or more following dose reduction techniques: automated exposure control, adjustment of the mA and kv according to patient's size, or use of a iterative reconstruction technique. DICTATED BY: CRIS FREEMAN MD DATE: 11/06/24 1258 ELECTRONICALLY SIGNED BY: CRIS FREEMAN MD DATE: 11/06/24 1339 [facility] MDM: Differential diagnosis: Knee strain, fall, Rationale: Tests considered and ordered secondary to shared decision making include: Previous outside records reviewed: Old ER visits. Risk of complication and/or morbidity or mortality of patient management: None Medications-Per medication reconciliation Need for hospitalization: Patient does not meet criteria for hospitalization. Patient is a 39-year-old male coming in to be evaluated after he had a slip and a fall earlier today. Per patient he is complaining of knee discomfort and had recently had cholecystectomy complaining of mild of the pain. Ultrasound was performed to rule out any abnormality in the right upper quadrant area. Ultrasound was inconclusive so CT head to be performed due to the possibility of a seroma. Imaging studies negative for acute findings. Patient will be discharged in stable condition with a diagnosis of fall and muscle strain. ED Course Orders Procedure Category Date Status Time Us Abdominal Ruq\Ltd US 11/06/24 Taken 08:57 Knee 3vws Rt RAD 11/06/24 Taken 08:57 Ct Abdomen/Pelvis W/O CT 11/06/24 Resulted Contrast 10:13 Hydrocodone/Apap PHA 11/06/24 Complete 5/325 (Goessel 5/325mg) 13:00 Current Medications Medications (Trade) Dose Ordered Sig/Stacia Route PRN Reason Start Time Stop Time Status Last Admin Dose Admin Acetaminophen/ Hydrocodone Bitart (NORco 5/325MG) 1 tab ONCE ONCE PO 11/06/24 13:00 11/06/24 13:01 DC 11/06/24 13:02 Vital Signs Date Time Temp Pulse Resp B/P (MAP) Pulse Ox O2 Delivery O2 Flow Rate FiO2 11/06/24 13:35 98.6 82 18 170/87 99 Room Air* 0 21 11/06/24 11:02 98.6 65 18 132/80 99 Room Air* 0 21 11/06/24 09:42 98.6 67 18 132/81 99 Room Air* 0 21 11/06/24 08:50 98.4 97 18 173/93 97 Room Air DX & DISP Disposition: Discharge Departure Impression: Primary Impression: Knee contusion Additional Impression: Abdominal muscle strain Condition: Stable Additional Instructions: FOLLOW-UP WITH PRIMARY CARE PROVIDER IN 1 TO 2 DAYS. TAKE MEDICATIONS DIRECTED HERE IN THE EMERGENCY ROOM. OKAY TO CONTINUE HOME MEDICATIONS UNLESS OTHERWISE DISCUSSED DURING YOUR VISIT IN THE EMERGENCY ROOM TODAY. RETURN TO YOUR NEAREST EMERGENCY ROOM IF SYMPTOMS WORSEN OR IF THERE IS NO IMPROVEMENT. CALL 911 IF YOU NEED IMMEDIATE ASSISTANCE. TAKE TYLENOL [id number] NEEDED AND IF NO CONTRAINDICATIONS ARE PRESENT. INCREASE ORAL HYDRATION. A WOUND CULTURE OR URINE CULTURE WAS ORDERED HERE IN THE EMERGENCY ROOM DEPARTMENT PLEASE FOLLOW-UP WITH PRIMARY CARE PROVIDER AND ADVISE THEM TO GET REPORTS FROM OUR FACILITY. IF YOU HAD ANY BLAYNE WRAP/SPLINTS THAT WERE APPLIED HERE, PLEASE DO NOT REMOVE THEM UNTIL YOU SEE YOUR PRIMARY CARE OR SPECIALTY. Referrals: Referrals: AMINATA BERGER MD (PCP) Time of Disposition: 13:49 SABAS EDDY MD Nov 06, 2024 11:01
[2024-11-06] MEDS: HYDROcodone/APAP 5/325 1 TAB TABLET PO ONE (13:02)
[2024-11-06 13:35] VITALS: BP 170/87; PULSE 82; RESP 18; TEMP 98.6; O2SAT 99
--- NOTE | 2024-11-06 13:39 | HMCIMG ---
CT ABDOMEN/PELVIS W/O CONTRAST HISTORY: Right upper quadrant. COMPARISON: None TECHNIQUE: Multiple sequential axial images of the abdomen and pelvis were obtained from the dome of the diaphragm through symphysis pubis. Patient was not given contrast through intravenous route. Oral contrast was not given. FINDINGS: Tiny right pleural effusions with subsegmental atelectasis. Tiny pericardial effusion is seen. There is no evidence of parenchymal disease or pulmonary nodule of the visualized lower lungs. Degenerative changes of the thoracolumbar spine are present. The heart is not enlarged. Postcholecystectomy changes are seen. The liver, spleen, adrenal glands and pancreas are unremarkable. There is no evidence of hydronephrosis bilaterally. No evidence of renal stone is seen. Fecal material is seen in the colon. There are normal size retroperitoneal and mesenteric lymph nodes. No ascites is seen. Atherosclerotic changes are present. Pelvic sidewalls are symmetric bilaterally. Bladder is poorly distended. IMPRESSION: 1. No acute findings. CT was performed with one or more following dose reduction techniques: automated exposure control, adjustment of the mA and kv according to patient's size, or use of a iterative reconstruction technique.
--- NOTE | 2024-11-06 14:01 | HMCIMG ---
US ABDOMINAL RUQ \E\LTD HISTORY: Abdominal pain COMPARISON: None TECHNIQUE: Right upper quadrant abdominal ultrasound study was performed. FINDINGS: Liver measures 19 cm. The visualized portion of the pancreas is within normal limits. Liver is echogenic consistent with liver parenchymal disease. Gallbladder has been removed. Complex structure is seen in the gallbladder fossa measuring 4.[address] may be performed for complete evaluation. Common duct measures 8 mm. Right kidney measures 1212.1 x 6.7 x 4.9cm. No hydronephrosis is seen of the right kidney. IMPRESSION: 1. Gallbladder has been removed. Complex structure is seen in the gallbladder fossa measuring 4.8 x 2 cm. No ductal dilatation is seen. 2. No hydronephrosis is seen.
--- NOTE | 2024-11-06 16:13 | HMCIMG ---
KNEE 3VWS RT HISTORY: Status post fall COMPARISON: None TECHNIQUE: 4 images of the right knee were obtained. FINDINGS: There is no acute displaced fracture or dislocation. Vascular calcifications are seen. Degenerative changes are seen. IMPRESSION: 1. Findings as described above.
== END 2024-11-06 14:03 | disposition home or self-care (01) ==
LOC: EDH 08:49
DX: S39.011A Strain of muscle, fascia and tendon of abdomen, initial encounter (principal); S80.02XA Contusion of left knee, initial encounter; I12.9 Hypertensive chronic kidney disease with stage 1 through stage 4 chronic kidney disease, or unspecified chronic kidney disease; E11.22 Type 2 diabetes mellitus with diabetic chronic kidney disease; N18.30 Chronic kidney disease, stage 3 unspecified; Z79.899 Other long term (current) drug therapy; W01.0XXA Fall on same level from slipping, tripping and stumbling without subsequent striking against object, initial encounter; Y93.89 Activity, other specified; Y92.89 Other specified places as the place of occurrence of the external cause; Y99.8 Other external cause status
CPT/HCPCS: 73562; 74176; 76705; 99284